=== PATIENT | male | born 1955 | race Caucasian/White ===

== ENCOUNTER 2022-01-13 15:10 | Inpatient (IN) | payer MEDICARE, MEDICAID ==
[~2022-01-13] VITALS: Ht 180.3 cm; Wt 84.4 kg
[2022-01-13] MEDS ORDERED: OCTREOTIDE ACETATE 50 MCG/ML 1ML IV STA (15:36)
[2022-01-13] MEDS ORDERED: PANTOPRAZOLE SODIUM 40 MG/VIAL IV STA (15:36)
[2022-01-13] MEDS ORDERED: CEFTRIAXONE 2 G PREMIX 50 ML IV ONE (15:45)
[2022-01-13] MEDS ORDERED: SODIUM CHLORIDE 0.9% 1,000 ML IV ONE (15:45)
[2022-01-13] MEDS ORDERED: PANTOPRAZOLE SODIUM 40 MG/VIAL IV NR (16:15)
[2022-01-13] MEDS ORDERED: CEFTRIAXONE 2 G PREMIX 50 ML IV NR (16:15)
[2022-01-13] MEDS ORDERED: MORPHINE SULFATE 4 MG/ML CPJ (NOT FOR IM USE) IV ONE (17:00)
[2022-01-13 17:02] LABS: EOSINOPHILS % 1.5 % (0.0-5.0); HEMATOCRIT. 33.8 % (42.0-52.0); HEMOGLOBIN. 10.9 g/dL (14.0-18.0); LYMPHOCYTES % 47.9 % (20.0-50.0); MEAN CORPUSCULAR HEMOGLOBIN 27.3 pg (28.0-32.0); MEAN CORPUSCULAR VOLUME 84.7 fL (80.0-94.0); MEAN PLATELET VOLUME 7.7 fl (7.4-10.4); MONOCYTES % 6.1 % (2.0-8.0); NEUTROPHILS % 43.5 % (40.0-76.0); PLATELET 317 x1000/uL (130-400); RED BLOOD CELL COUNT 3.99 mill/uL (4.7-6.1); RED CELL DISTRIBUTION WIDTH 18.2 % (11.6-14.6)
[2022-01-13 17:08] LABS: CHLORIDE 99 mEq/L (98-107)
[2022-01-13 17:09] LABS: PROTHROMBIN TIME 10.7 sec (9.6-11.0)
[2022-01-13 17:12] LABS: ETHANOL BLOOD 280 mg/dL
[2022-01-13 17:21] LABS: BG BASE EXCESS -3.9 mmol/L (-2.0-2.0); BG CARBOXYHEMOGLOBIN 0.3 % (0.5-1.5); BG DEOXYHEMOGLOBIN 3.7 % (0.0-5.0); BG FRACTION INSPIRED OXYGEN 21; BG HCO3 ACT 21.1 mmol/L (22.0-26.0); BG METHEMOGLOBIN 0.3 % (0.0-1.5); BG OXYGEN SATURATION 96.3 % (92.0-98.5); BG OXYHEMOGLOBIN 95.7 % (94.0-97.0); BG PCO2 38.1 mmHg (35.0-45.0); BG PH 7.361 (7.350-7.450); BG PO2 98.6 mmHg (75.0-100.0); BG SAMPLE SITE RIGHT RADIAL; BG VENT MODE ROOM AIR
[2022-01-13 21:10] VITALS: BP 156/90
[2022-01-13 22:00] VITALS: BP 156/90
[2022-01-13] MEDS ORDERED: CHLORDIAZEPOXIDE 25MG CAPSULE PO SCH (22:00)
[2022-01-13] MEDS ORDERED: ONDANSETRON HCL 4MG/2ML INJ IV PRN (22:00)
[2022-01-13] MEDS ORDERED: ACETAMINOPHEN 650MG/20.3ML UDC PO PRN (22:00)
[2022-01-13] MEDS: SODIUM CHLORIDE 0.9% 1,000 ML IV SCH (22:31)
[2022-01-13] MEDS ORDERED: BUPR75TA8 PO (22:41)
[2022-01-13] MEDS ORDERED: FLUO10CA25 PO (22:42)
[2022-01-13] MEDS ORDERED: HYDR200T35 PO (22:42)
[2022-01-14] VITALS: BP 173/97
[2022-01-14] MEDS ORDERED: CHLORDIAZEPOXIDE 25MG CAPSULE PO SCH ×2 (00:15→06:00)
[2022-01-14 04:00] VITALS: BP 144/76
[2022-01-14 08:00] VITALS: BP 144/84
[2022-01-14] MEDS: PANTOPRAZOLE SODIUM 40 MG/VIAL IV SCH (08:26)
[2022-01-14] MEDS: SODIUM CHLORIDE 0.9% 1,000 ML IV SCH (08:30)
[2022-01-14] MEDS: HYDROCODONE/ACETAMINOPHEN 5/325MG TABLET PO PRN ×2 (10:07→19:47)
[2022-01-14] MEDS: CHLORDIAZEPOXIDE 25MG CAPSULE PO SCH ×3 (11:04→23:08)
[2022-01-14 12:00] VITALS: BP 144/84
[2022-01-14] MEDS ORDERED: NALOXONE HCL 0.4MG/ML VIAL IV PRN (12:00)
[2022-01-14 12:14] LABS: HEMATOCRIT 28.8 % (42.0-52.0); HEMOGLOBIN 9.6 g/dL (14.0-18.0)
[2022-01-14] MEDS: FOLIC ACID 1MG TABLET PO SCH (13:56)
[2022-01-14] MEDS: THIAMINE HCL 100MG TABLET PO SCH (13:56)
[2022-01-14] MEDS: AMLODIPINE 2.5MG TABLET PO SCH (13:56)
[2022-01-14 16:00] VITALS: BP 115/67
[2022-01-14 20:00] VITALS: BP 118/70
[2022-01-14 20:40] LABS: HEMATOCRIT 29.4 % (42.0-52.0); HEMOGLOBIN 9.6 g/dL (14.0-18.0)
[2022-01-14 21:06] LABS: TOTAL IRON BINDING CAPACITY 438 ug/dL (250-450)
[2022-01-14 21:19] LABS: FOLIC ACID (FOLATE) SERUM > 20.00 ng/mL (>5.38)
[2022-01-14 21:30] LABS: FERRITIN 11 ng/mL (22-322); VITAMIN B12 SERUM 649 pg/mL (211-911)
[2022-01-15] VITALS: BP 112/69
[2022-01-15 00:56] LABS: HEMOGLOBIN 9.5 g/dL (14.0-18.0)
[2022-01-15 04:00] VITALS: BP 119/83
[2022-01-15] MEDS: CHLORDIAZEPOXIDE 25MG CAPSULE PO SCH ×3 (05:21→17:45)
[2022-01-15] MEDS: HYDROCODONE/ACETAMINOPHEN 5/325MG TABLET PO PRN ×2 (06:43→20:03)
[2022-01-15 08:00] VITALS: BP 141/89
[2022-01-15] MEDS: THIAMINE HCL 100MG TABLET PO SCH (09:45)
[2022-01-15] MEDS: FOLIC ACID 1MG TABLET PO SCH (09:45)
[2022-01-15] MEDS: PANTOPRAZOLE SODIUM 40 MG/VIAL IV SCH (09:46)
[2022-01-15] MEDS: AMLODIPINE 2.5MG TABLET PO SCH (09:46)
[2022-01-15 11:40] LABS: HEMATOCRIT 30.9 % (42.0-52.0); HEMOGLOBIN 9.9 g/dL (14.0-18.0)
[2022-01-15] MEDS: IRON SUCROSE COMPLEX 100 MG/5 ML ML IV SCH (11:56)
[2022-01-15] MEDS: SODIUM CHLORIDE 0.9% 1,000 ML IV SCH ×2 (11:57→11:58)
[2022-01-15 12:00] VITALS: BP 128/68
[2022-01-15] MEDS: LORAZEPAM 2MG/ML CPJ IV PRN ×2 (14:28→20:44)
[2022-01-15 16:00] VITALS: BP 124/62
[2022-01-15 20:00] VITALS: BP 136/77
[2022-01-15 21:12] LABS: HEMATOCRIT 32.7 % (42.0-52.0); HEMOGLOBIN 10.5 g/dL (14.0-18.0)
[2022-01-16] VITALS: BP 125/61
[2022-01-16] MEDS: SODIUM CHLORIDE 0.9% 1,000 ML IV SCH ×2 (00:02→13:48)
[2022-01-16] MEDS: LORAZEPAM 2MG/ML CPJ IV PRN ×2 (02:18→10:24)
[2022-01-16 04:00] VITALS: BP 116/83
[2022-01-16] MEDS: HYDROCODONE/ACETAMINOPHEN 5/325MG TABLET PO PRN ×3 (05:25→21:28)
[2022-01-16] MEDS: CHLORDIAZEPOXIDE 25MG CAPSULE PO SCH ×4 (05:26→21:25)
[2022-01-16 08:00] VITALS: BP 137/83
[2022-01-16 08:38] LABS: BASOPHILS % 1.4 % (0.0-2.0); EOSINOPHILS % 4.1 % (0.0-5.0); HEMATOCRIT. 30.1 % (42.0-52.0); HEMOGLOBIN. 9.6 g/dL (14.0-18.0); LYMPHOCYTES % 50.2 % (20.0-50.0); MEAN CORPUSCULAR HEMOGLOBIN 27.3 pg (28.0-32.0); MEAN CORPUSCULAR VOLUME 85.3 fL (80.0-94.0); MEAN PLATELET VOLUME 7.8 fl (7.4-10.4); MONOCYTES % 11.4 % (2.0-8.0); NEUTROPHILS % 32.9 % (40.0-76.0); PLATELET 304 x1000/uL (130-400); RED BLOOD CELL COUNT 3.52 mill/uL (4.7-6.1)
[2022-01-16 08:49] LABS: CHLORIDE 110 mEq/L (98-107)
[2022-01-16] MEDS: IRON SUCROSE COMPLEX 100 MG/5 ML ML IV SCH (09:26)
[2022-01-16] MEDS: PANTOPRAZOLE SODIUM 40 MG/VIAL IV SCH (09:26)
[2022-01-16] MEDS: THIAMINE HCL 100MG TABLET PO SCH (09:27)
[2022-01-16] MEDS: FOLIC ACID 1MG TABLET PO SCH (09:27)
[2022-01-16] MEDS: AMLODIPINE 2.5MG TABLET PO SCH (09:27)
[2022-01-16 12:00] VITALS: BP 124/62
[2022-01-16 13:23] LABS: HEMATOCRIT 35.5 % (42.0-52.0); HEMOGLOBIN 11.5 g/dL (14.0-18.0)
[2022-01-16 16:00] VITALS: BP 136/62
[2022-01-16] MEDS ORDERED: THIA50TA12 MT (17:19)
[2022-01-16 20:00] VITALS: BP 158/88
[2022-01-16] MEDS ORDERED: HYDROCODONE/ACETAMINOPHEN 5/325MG TABLET ONE (21:17)
[2022-01-16] MEDS ORDERED: CHLORDIAZEPOXIDE 25MG CAPSULE ONE (21:18)
[2022-01-16] MEDS ORDERED: HYDROCODONE/ACETAMINOPHEN 5/325MG TABLET PO PRN ×2 (23:30)
[2022-01-17] VITALS: BP 140/76
[2022-01-17] MEDS ORDERED: LORAZEPAM 2MG/ML CPJ ONE (00:02)
[2022-01-17] MEDS: LORAZEPAM 2MG/ML CPJ IV PRN (00:07)
[2022-01-17] MEDS ORDERED: ACETAMINOPHEN 325MG TABLET ONE ×2 (02:26→02:27)
[2022-01-17 04:00] VITALS: BP 124/74
[2022-01-17] MEDS ORDERED: CHLORDIAZEPOXIDE 25MG CAPSULE ONE (04:27)
[2022-01-17] MEDS: CHLORDIAZEPOXIDE 25MG CAPSULE PO SCH ×2 (04:31)
[2022-01-17 07:10] LABS: HEMATOCRIT. 28.5 % (42.0-52.0); HEMOGLOBIN. 9.5 g/dL (14.0-18.0); MEAN CORPUSCULAR HEMOGLOBIN 27.4 pg (28.0-32.0); MEAN CORPUSCULAR VOLUME 82.3 fL (80.0-94.0); MEAN PLATELET VOLUME 7.6 fl (7.4-10.4); PLATELET 305 x1000/uL (130-400); RED BLOOD CELL COUNT 3.47 mill/uL (4.7-6.1); RED CELL DISTRIBUTION WIDTH 18.2 % (11.6-14.6)
[2022-01-17 07:53] LABS: CHLORIDE 112 mEq/L (98-107)
[2022-01-17 08:00] VITALS: BP 130/85
[2022-01-17] MEDS ORDERED: PANTOPRAZOLE SODIUM 40 MG/VIAL IV ONE (08:38)
[2022-01-17 08:59] VITALS: BP 130/85
[2022-01-17] MEDS: IRON SUCROSE COMPLEX 100 MG/5 ML ML IV SCH (09:25)
[2022-01-17] MEDS: FOLIC ACID 1MG TABLET PO SCH (09:25)
[2022-01-17] MEDS: PANTOPRAZOLE SODIUM 40 MG/VIAL IV SCH (09:26)
[2022-01-17] MEDS: THIAMINE HCL 100MG TABLET PO SCH (09:26)
[2022-01-17] MEDS: AMLODIPINE 2.5MG TABLET PO SCH (09:26)
[2022-01-17] MEDS ORDERED: CHLORDIAZEPOXIDE 25MG CAPSULE PO NR (10:00)
[2022-01-17 10:36] LABS: PLATELET ESTIMATE NORMAL
[2022-01-18 14:08] LABS: *HIV-1 RNA BY PCR 220 copies/mL (.)
== END 2022-01-17 09:45 | disposition home or self-care (01) | DRG 377 ==
LOC: ER 15:10 → 8WST 18:23 → EDBEDREQ 18:25 → EDBEDREQTM 18:25 → ENRESERV 20:13
PROVIDERS: ADMIT Family Medicine; ATTEND Family Medicine
DX: K92.1 Melena (principal); K85.90 Acute pancreatitis without necrosis or infection, unspecified; E87.1 Hypo-osmolality and hyponatremia; J98.11 Atelectasis; F10.131 Alcohol abuse with withdrawal delirium; K86.1 Other chronic pancreatitis; D64.9 Anemia, unspecified; F17.210 Nicotine dependence, cigarettes, uncomplicated; Y90.8 Blood alcohol level of 240 mg/100 ml or more; R55 Syncope and collapse
CPT/HCPCS: 36415; 36600; 71045; 73030; 74176; 76705; 80048; 80053; 80320; 82270; 82375; 82607; 82728; 82746; 82805; 83540; 83550; 83605; 85014; 85018; 85025; 85044; 86850; 86900; 87536; 99291; C1893; C9113; J0696; J2060; J2270; J2354; J7030; G0480